=== PATIENT | male | born 1995 | race Two or more races ===

== ENCOUNTER 2018-01-31 21:01 | Emergency (ER) | payer MEDICAID ==
[~2018-01-31] VITALS: Ht 172.7 cm; Wt 61.2 kg
[2018-01-31 22:36] VITALS: BP 126/69
[2018-01-31] MEDS ORDERED: KETOROLAC TROMETH 60MG/2ML VIAL IM ONE (23:00)
[2018-01-31] MEDS ORDERED: TETANUS-DIPTH-ACEL PERTUSSIS 0.5ML SYRG IM ONE (23:00)
[2018-01-31] MEDS ORDERED: LIDOCAINE 1%HCL (LOCAL ANESTH) 10 ML MDV ONE (23:42)
[2018-01-31] MEDS ORDERED: BACITRACIN TOP OINT 1 UD PKG TOP ONE (23:45)
[2018-01-31] MEDS ORDERED: LIDOCAINE 1% HCL (LOCAL ANESTH.) INJ 20ML MDV ID ONE (23:45)
== END 2018-02-01 00:53 | disposition home or self-care (01) ==
LOC: ER 21:01
DX: S60.552A Superficial foreign body of left hand, initial encounter (principal); W34.09XA Accidental discharge from other specified firearms, initial encounter; Y93.89 Activity, other specified; Y99.8 Other external cause status; Y92.89 Other specified places as the place of occurrence of the external cause
CPT/HCPCS: 10120; 73120; 90471; 90715; 96372; 99284; J1885; J2001